=== PATIENT | female | born 1985 | race Caucasian/White ===

== ENCOUNTER 2017-10-10 21:45 | Inpatient (IN) | payer OTHER ==
[~2017-10-10] VITALS: Ht 154.9 cm; Wt 63.5 kg
[2017-10-10 21:50] VITALS: BP 117/81
--- NOTE | 2017-10-10 21:55 | NUR ---
TO LOBBY, VIA W/C, VSAMADA Shultz NOTED
--- NOTE | 2017-10-10 22:47 | NUR ---
PT TAKEN TO OF2
--- NOTE | 2017-10-10 23:11 | NUR ---
32Y F BIB SELF C/O RIGHT ARM CELLULITIS X 3 DAYS. PT STATES IT MAY BE FROM SHOOTING UP HEROIN OR A SPIDER BITE. PT SAYS SHE USED 4-5 DAYS AGO. PT DENIES ANY N/V/D, SOB, CP AT THE MOMENT. PT AAOX4. BREATHING IS UNLABORED AND CLEAR.
--- NOTE | 2017-10-11 00:51 | NUR ---
PT MOVED TO BED 2
--- NOTE | 2017-10-11 01:00 | NUR ---
REPORT RECEIVED FROM SEUN ORTIZ
[2017-10-11] MEDS ORDERED: NACL 0.9% 1,000 ML IV SCH (01:09)
[2017-10-11] MEDS ORDERED: MORPHINE SULFATE 10 MG/ML SYR IVP ONE (01:10)
[2017-10-11] MEDS ORDERED: KETOROLAC 30 MG/ML VIAL IVP ONE (01:10)
[2017-10-11] MEDS ORDERED: ONDANSETRON 4 MG/2 ML VIAL IM ONE (01:10)
[2017-10-11] MEDS ORDERED: VANCOMYCIN 1,000 MG in DEXTROSE 5% 250 ML IV ONE (01:10)
[2017-10-11] MEDS ORDERED: DIAZEPAM 5 MG TAB PO ONE (01:20)
[2017-10-11] MEDS ORDERED: VANCOMYCIN 1,000 MG VIAL ONE (01:27)
[2017-10-11 02:07] LABS: BASOPHILS # (AUTO) 0.3 K/uL (0.00-0.22); BASOPHILS % (AUTO) 1.8 % (0.0-2.0); EOSINOPHILS # (AUTO) 0.1 K/uL (0-0.4); EOSINOPHILS % (AUTO) 0.7 % (0.0-4.0); HEMATOCRIT 37.7 % (36-48); HEMOGLOBIN 11.8 g/dL (12.0-16.0); LYMPHOCYTES # (AUTO) 0.7 K/uL (2.5-16.5); LYMPHOCYTES % (AUTO) 4.6 % (20.5-51.1); MEAN CORPUSCULAR HEMOGLOBIN 27 pg (27-31); MEAN CORPUSCULAR HGB CONC 31 g/dL (33-37); MEAN CORPUSCULAR VOLUME 86 fL (80-94); MONOCYTES # (AUTO) 1.3 K/uL (0.8-1.0); MONOCYTES % (AUTO) 8.4 % (1.7-9.3); NEUTROPHILS # (AUTO) 13.6 K/uL (1.8-7.7); NEUTROPHILS % (AUTO) 84.5 % (42.2-75.2); PLATELET COUNT (AUTO) 408 K/uL (140-450); RED BLOOD CELL COUNT(AUTO) 4.36 MIL/uL (4.20-5.40); RED CELL DISTRIBUTION WIDTH 13.3 % (11.6-13.7)
[2017-10-11 02:17] LABS: ANION GAP 14.2 (8-16); CARBON DIOXIDE 25.4 mmol/L (21-32); CREATININE 0.7 mg/dL (0.6-1.3); POTASSIUM 3.6 mmol/L (3.5-5.1)
[2017-10-11 02:24] LABS: ALBUMIN 3.1 g/dL (3.4-5.0); TOTAL BILIRUBIN 0.5 mg/dL (0.0-1.0)
--- NOTE | 2017-10-11 02:40 | NUR ---
Patient appears to be resting comfortably in bed. Vital Signs within normal limits. Respirations even and unlabored.
--- NOTE | 2017-10-11 02:52 | NUR ---
PT SENT TO CT WITH TECH AAOX4 VIA BED
[2017-10-11] MEDS ORDERED: PIPERACILLIN/TAZOBACTAM 4.5 GM in DEXTROSE 5% 100 ML IV ONE (03:35)
[2017-10-11] MEDS ORDERED: NACL 0.9% 2,000 ML IV ONE (03:35)
[2017-10-11] MEDS ORDERED: PIPERACILLIN/TAZOBACTAM 2.25 GM VIAL IV ONE (04:04)
[2017-10-11] MEDS ORDERED: ONDANSETRON 4 MG/2 ML VIAL IVP PRN (04:50)
[2017-10-11] MEDS ORDERED: HYDROcodone/APAP 5/325 MG 1 TAB TAB PO PRN (04:50)
[2017-10-11] MEDS ORDERED: LORazepam 2 MG/ML VIAL IVP PRN (04:50)
[2017-10-11] MEDS ORDERED: ACETAMINOPHEN 325 MG TAB PO PRN (04:50)
[2017-10-11] MEDS ORDERED: VANCOMYCIN PER PHARMACY MC PRN (05:00)
[2017-10-11 07:50] VITALS: BP 100/67
[2017-10-11] MEDS: PIPER/TAZO 3.375GM/D5W PREMIX 50 ML IV SCH ×2 (12:00→17:56)
--- NOTE | 2017-10-11 12:00 | NUR ---
RECEIVED REPORT FROM SEUN REGALADO FOR CONTINUITY OF PATIENT CARE. PATIENT IN STABLE CONDITION. WILL CONTINUE TO MONITOR.
--- NOTE | 2017-10-11 12:31 | NUR ---
Clinical review faxed to [facility].
[2017-10-11] MEDS: VANCOMYCIN 1GM/DEXT 5% PREMIX 200 ML IV SCH (13:39)
--- NOTE | 2017-10-11 13:44 | NUR ---
PATIENT LYING IN BED SLEEPING, AROUSABLE BY VOICE. NO DISTRESS NOTED. PAIN WITHIN TOLERABLE AT THIS TIME. SCHEDULED MEDICATIONS DUE GIVEN. SAFETY MEASURES IN PLACE, CALL LIGHT WITHIN REACH. WILL CONTINUE TO MONITOR.
[2017-10-11 14:44] LABS: PROTHROMBIN TIME 10.1 secs (10.8-13.4)
[2017-10-11 16:00] VITALS: BP 105/59
--- NOTE | 2017-10-11 18:02 | NUR ---
PATIENT LYING IN BED WATCHING TV. NO DISTRESS NOTED. PAIN WITHIN TOLERABLE AT THIS TIME. MODERATE DRAINAGE NOTED ON RIGHT ABSCESS WOUND. CHANGED DRESSING WITH GAUZE. SCHEDULED ANTIBIOTICS DUE GIVEN. SAFETY MEASURES IN PLACE, CALL LIGHT WITHIN REACH. WILL CONTINUE TO MONITOR.
--- NOTE | 2017-10-11 19:20 | NUR ---
GAVE REPORT TO BOXING PROMOTER NURSE FOR CONTINUITY OF CARE. PATIENT IN STABLE CONDITION.
--- NOTE | 2017-10-11 19:21 | NUR ---
PATIENT REPORT RECEIVED FROM MORNING NURSE AT BEDSIDE. PATIENT IS ASLEEP. NO SIGNS AND SYMPTOMS OF DISTRESS NOTED. BREATHING EVEN AND UNLABORED. FAMILY MEMBER AT BEDSIDE. IV SITE NOTED ON LEFT ARM, IVF INFUSING WELL. BED IN LOWEST POSITION, SIDE RAILS UP AND CALL LIGHT WITHIN REACH WILL CONTINUE TO MONITOR.
[2017-10-11 20:00] VITALS: BP 114/71
--- NOTE | 2017-10-11 22:00 | NUR ---
CHECKED ON PATIENT. PATIENT IS ASLEEP. NO SIGNS AND SYMPTOMS OF DISTRESS NOTED. CALL LIGHT WITHIN REACH. WILL CONTINUE TO MONITOR.
[2017-10-12] VITALS: BP 110/60
[2017-10-12] MEDS ORDERED: HYDROcodone/APAP 5/325 MG 1 TAB TAB ONE (00:37)
[2017-10-12] MEDS: HYDROcodone/APAP 5/325 MG 1 TAB TAB PO PRN ×3 (00:40→22:02)
[2017-10-12] MEDS: PIPER/TAZO 3.375GM/D5W PREMIX 50 ML IV SCH ×4 (00:47→21:11)
[2017-10-12] MEDS: VANCOMYCIN 1GM/DEXT 5% PREMIX 200 ML IV SCH (01:00)
--- NOTE | 2017-10-12 01:00 | NUR ---
CONSENT WITNESSED. PATIENT IS RIGHT HANDED, AND UNABLE TO SIGN DUE TO PAIN/SWELLING. PATIENT'S SIGNED CONSENT FORMS.
--- NOTE | 2017-10-12 05:20 | NUR ---
OR CHECKLIST DONE
--- NOTE | 2017-10-12 07:20 | NUR ---
PATIENT REPORT GIVEN TO MORNING NURSE AT BEDSIDE. PATIENT IS IN STABLE CONDITION
--- NOTE | 2017-10-12 07:21 | NUR ---
RECEIVED REPORT FROM BUDGET ASSISTANT RN. PATIENT IS AAOX4, NO SIGNS AND SYMPTOMS OF ACUTE DISTRESS NOTED AT THIS TIME. HAS IV TO LEFT AC 18G INFUSING NS AT 50ML/HR. SITE IS CLEAN, DRY, PATENT AND INTACT. HAS AN ABSCESS TO HER RIGHT AC. DISCUSSED PLAN OF CARE. PATIENT AWARE THAT SHE WILL BE GOING TO SURGERY THIS MORNING FOR AN I&D. BED IN LOWEST POSITION, SIDE RAILS UP X2, CALL LIGHT PLACED WITHIN REACH. WILL CONTINUE TO MONITOR.
[2017-10-12 07:46] LABS: BASOPHILS # (AUTO) 0.1 K/uL (0.00-0.22); BASOPHILS % (AUTO) 0.7 % (0.0-2.0); EOSINOPHILS # (AUTO) 0.2 K/uL (0-0.4); HEMOGLOBIN 10.8 g/dL (12.0-16.0); LYMPHOCYTES # (AUTO) 1.3 K/uL (2.5-16.5); LYMPHOCYTES % (AUTO) 10.8 % (20.5-51.1); MEAN CORPUSCULAR HEMOGLOBIN 29 pg (27-31); MEAN CORPUSCULAR HGB CONC 34 g/dL (33-37); MEAN CORPUSCULAR VOLUME 87 fL (80-94); MONOCYTES # (AUTO) 0.9 K/uL (0.8-1.0); MONOCYTES % (AUTO) 7.8 % (1.7-9.3); NEUTROPHILS # (AUTO) 9.6 K/uL (1.8-7.7); NEUTROPHILS % (AUTO) 78.7 % (42.2-75.2); PLATELET COUNT (AUTO) 360 K/uL (140-450); RED BLOOD CELL COUNT(AUTO) 3.71 MIL/uL (4.20-5.40); RED CELL DISTRIBUTION WIDTH 13.4 % (11.6-13.7); WHITE BLOOD COUNT (AUTO) 12.1 K/uL (4.8-10.8)
[2017-10-12 08:00] VITALS: BP 113/67
--- NOTE | 2017-10-12 08:51 | NUR ---
PATIENT TAKEN FOR SURGICAL PROCEDURE. HELD LOVENOX DUE TO PROCEDURE.
[2017-10-12] MEDS ORDERED: BUPIVACAINE-MPF 0.25% 30 ML VIAL INJ ONE (08:59)
[2017-10-12] MEDS ORDERED: ENOXAPARIN 40 MG/0.4 ML SYR SUBQ SCH (09:00)
--- NOTE | 2017-10-12 09:07 | NUR ---
PATIENT HAS BEEN SCREENED AND CATEGORIZED LOW NUTRITION RISK. PATIENT WILL BE SEEN WITHIN 7 DAYS OF ADMISSION. 10/17/[address]
[2017-10-12] MEDS ORDERED: ONDANSETRON 4 MG/2 ML VIAL ONE (09:30)
[2017-10-12] MEDS ORDERED: PROPOFOL 200 MG/20 ML VIAL IV ONE (09:30)
[2017-10-12 09:43] LABS: ANION GAP 10.6 (8-16); CARBON DIOXIDE 28.2 mmol/L (21-32); CREATININE 0.6 mg/dL (0.6-1.3); POTASSIUM 3.8 mmol/L (3.5-5.1)
[2017-10-12] MEDS ORDERED: fentaNYL 0.05 MG/ML VIAL ONE (09:46)
[2017-10-12] MEDS ORDERED: MIDAZOLAM 2 MG/2 ML VIAL ONE (09:46)
[2017-10-12] MEDS ORDERED: MORPHINE SULFATE 4 MG/ML SYR ONE (09:46)
[2017-10-12 09:49] LABS: ALBUMIN 2.4 g/dL (3.4-5.0); MAGNESIUM 1.8 mg/dL (1.8-2.4); PHOSPHORUS 3.6 mg/dL (2.5-4.9); TOTAL BILIRUBIN 0.4 mg/dL (0.0-1.0)
[2017-10-12] MEDS ORDERED: MORPHINE SULFATE 4 MG/ML SYR IVP PRN ×2 (10:35)
[2017-10-12] MEDS ORDERED: MORPHINE SULFATE 2 MG/ML SYR IVP PRN (10:35)
[2017-10-12] MEDS ORDERED: METOCLOPRAMIDE 10 MG/2 ML INJ VIAL IVP PRN (10:35)
[2017-10-12] MEDS ORDERED: MIDAZOLAM 2 MG/2 ML VIAL IV ONE (10:35)
[2017-10-12 11:05] VITALS: BP 115/69
--- NOTE | 2017-10-12 11:05 | NUR ---
PATIENT IS BACK FROM SURGERY. DENIES ANY PAIN AT THIS TIME. VITAL SIGNS ARE STABLE. WILL CONTINUE TO MONITOR.
[2017-10-12] MEDS: VANCOMYCIN 1,250 MG in DEXTROSE 5% 250 ML IV SCH (15:13)
--- NOTE | 2017-10-12 15:34 | NUR ---
CM NOTE [facility] / FAX# [phone], ATTN: PAXTON #[phone]
--- NOTE | 2017-10-12 15:59 | NUR ---
CM NOTE CONCURRENT REVIEW FAXED TO [facility] (FAX# [phone], ATTN: SHIVANI #[phone]) AND [facility] (FAX# [phone], ATTN: SAMY #[phone])
[2017-10-12 16:00] VITALS: BP 112/67
--- NOTE | 2017-10-12 19:30 | NUR ---
ENDORSED PATIENT TO TOWER CRANE OPERATOR NURSE FOR CONTINUITY OF CARE. PATIENT IN STABLE CONDITION.
--- NOTE | 2017-10-12 19:31 | NUR ---
PATIENT IS CURRENTLY SLEEPING RESTING IN BED IVF INFUSING WELL IV SITE PATENT.RT ARM ELEVATED ON A PILLOW AND CONTINUE TO HAVE A CONSTANTINE WRAP AROUND HER RT ARM WILL CONTINUE TO MONITOR. PATIENT IS ABLE TO MAKE NEEDS KNOWN.CALL LIGHT WITHIN REACH WILL CONTINUE TO MONITOR.
--- NOTE | 2017-10-12 20:00 | NUR ---
Patient's Plan of Care was discussed and reviewed with WEIGHMASTER: JONATHON KING
--- NOTE | 2017-10-12 20:20 | NUR ---
RECEIVED REPORT FROM ANOTHER DIRECTOR OF CONTRACTS NURSE. PT RESTING IN BED, DAUGHTER IN LAW AT BEDSIDE. IV TO RIGHT AC #20G WITH NS AT 100 ML/HR, INFUSING WELL. NO VOMITING NOTED. NO C/O PAIN OR DISCOMFORT. CALL LIGHT WITHIN REACH. WILL CONTINUE TO MONITOR.
--- NOTE | 2017-10-12 22:02 | NUR ---
PATIENT IS COMPLAINING OF MODERATE PAIN TO HER RT ARM PATIENT WAS MEDICATED FOR PAIN ORDERED WILL CONTINUE TO MONITOR.CALL LIGHT WITHIN REACH.
[2017-10-13 00:19] VITALS: BP 92/44
--- NOTE | 2017-10-13 00:24 | NUR ---
PATIENT STABLE RESTING IN BED ASSISTED TO THE BATHROOM AND BACK TO BED DENIES PAIN AND DISCOMFORT.IVF INFUSING WELL IV SITE PATENT.WILL CONTINUE TO MONITOR.
[2017-10-13] MEDS: PIPER/TAZO 3.375GM/D5W PREMIX 50 ML IV SCH ×3 (00:45→11:11)
--- NOTE | 2017-10-13 02:52 | NUR ---
PATIENT AWAKE ON AND OFF NEEDS MET.WILL CONTINUE TO MONITOR.
[2017-10-13] MEDS: VANCOMYCIN 1,250 MG in DEXTROSE 5% 250 ML IV SCH (02:56)
--- NOTE | 2017-10-13 04:40 | NUR ---
PATIENT IS CURRENTLY SLEEPING IN BED IN NO DISTRESS WILL CONTINUE TO MONITOR.CALL LIGHT WITHIN REACH RT ARM CONTINUES TO BE ELEVATED.
--- NOTE | 2017-10-13 06:39 | NUR ---
PATIENT AWAKE AND LAB IS CURRENTLY DRAWING BLOOD PATIENT TOLERATES WELL.WILL CONTINUE TO MONITOR.
--- NOTE | 2017-10-13 07:28 | NUR ---
PATIENT STABLE REPORT ENDORSED AT BEDSIDE TO SEUN POZO SHE WILL RESUME CARE OF THE PATIENT.
--- NOTE | 2017-10-13 07:29 | NUR ---
RECEIVED REPORT FROM SUPERVISOR FINISHING DEPARTMENT NURSE AT BEDSIDE FOR CONTINUITY OF CARE. PT IN STABLE CONDITION.
[2017-10-13 07:38] LABS: BASOPHILS # (AUTO) 0.1 K/uL (0.00-0.22); BASOPHILS % (AUTO) 0.8 % (0.0-2.0); EOSINOPHILS # (AUTO) 0.3 K/uL (0-0.4); EOSINOPHILS % (AUTO) 3.3 % (0.0-4.0); HEMATOCRIT 31.4 % (36-48); HEMOGLOBIN 10.6 g/dL (12.0-16.0); LYMPHOCYTES % (AUTO) 11.7 % (20.5-51.1); MEAN CORPUSCULAR HEMOGLOBIN 29 pg (27-31); MEAN CORPUSCULAR HGB CONC 34 g/dL (33-37); MEAN CORPUSCULAR VOLUME 87 fL (80-94); MONOCYTES # (AUTO) 0.7 K/uL (0.8-1.0); NEUTROPHILS # (AUTO) 6.7 K/uL (1.8-7.7); NEUTROPHILS % (AUTO) 76.2 % (42.2-75.2); PLATELET COUNT (AUTO) 383 K/uL (140-450); RED BLOOD CELL COUNT(AUTO) 3.63 MIL/uL (4.20-5.40); RED CELL DISTRIBUTION WIDTH 13.3 % (11.6-13.7); WHITE BLOOD COUNT (AUTO) 8.8 K/uL (4.8-10.8)
[2017-10-13 07:50] LABS: ANION GAP 9.7 (8-16); CARBON DIOXIDE 32.1 mmol/L (21-32); CREATININE 0.7 mg/dL (0.6-1.3); POTASSIUM 3.8 mmol/L (3.5-5.1)
[2017-10-13 08:00] VITALS: BP 105/59
[2017-10-13] MEDS ORDERED: AMOX-999 PO (08:52)
[2017-10-13] MEDS ORDERED: SULF-58 PO (08:53)
[2017-10-13] MEDS ORDERED: ACET-2863 PO (08:53)
--- NOTE | 2017-10-13 09:11 | NUR ---
CM NOTE CONCURRENT REVIEW FAXED TO [facility] [phone] SHIVANI [phone]. SPOKE WITH SMITA OF [place] # [phone] TO FOLLOW UP ON THE AUTHORIZATION FOR HOME HEALTH AND SHE SAID THEY HAVE NOT RECEIVED THE FAXED ORDER. FAXED ORDER TO [place] [phone] AND TO [facility] [phone] ATTN: ANTONIO # [phone].
--- NOTE | 2017-10-13 10:10 | NUR ---
TRACEY NOTE PER ANTON[facility] PH# [phone] THEY CAN SEND A NURSE TO SEE THE PATIENT WHEN PATIENT IS DISCHARGED. THEY ARE AWARE THAT THERE IS A DISCHARGE ORDER FOR THE PATIENT TODAY. CHARGE NURSE [place] AWARE. Addendum: 10/13/17 at 1012 by Juli Srinivasan CM [facility] PH# [phone] AWARE
--- NOTE | 2017-10-13 13:11 | NUR ---
PT D/C TO GO HOME WITH HOME HEALTH. GAVE D/C FORMS, INSTRUCTIONS, FOLLOW UP APPOINTMENT, AND RX. PT VERBALIZED UNDERSTANDING AND SIGNED FORMS. D/C IV TO LEFT AC 18G. IV CATHETER TIP INTACT. APPLIED DRESSING AND PRESSURE TO SITE. NO BLEEDING NOTED. REMOVED ID BAND. PT CHANGED IN OWN CLOTHES. IN STABLE CONDITION.
--- NOTE | 2017-10-13 14:54 | NUR ---
CM NOTE PER TRACEY [facility] OF [place] PH# [phone], FOR [facility] AUTHORIZATION# [id number], ANTONIO OF [facility] PH# [phone] AWARE.
== END 2017-10-13 14:00 | disposition home health service (06) | DRG 720 ==
LOC: MED 21:45 → MTU 10-11 04:54
PROVIDERS: ADMIT Hospitalist; ATTEND Hospitalist
PROC: 0JBG0ZZ Excision of Right Lower Arm Subcutaneous Tissue and Fascia, Open Approach (ICD-10-PCS; principal; 2017-10-12 09:00)
DX: A41.9 Sepsis, unspecified organism (principal); E44.0 Moderate protein-calorie malnutrition; L02.413 Cutaneous abscess of right upper limb; F15.90 Other stimulant use, unspecified, uncomplicated; F17.210 Nicotine dependence, cigarettes, uncomplicated; F11.10 Opioid abuse, uncomplicated; F19.10 Other psychoactive substance abuse, uncomplicated; L03.113 Cellulitis of right upper limb; Z98.891 History of uterine scar from previous surgery; Z80.3 Family history of malignant neoplasm of breast; Z83.3 Family history of diabetes mellitus; Z68.26 Body mass index [BMI] 26.0-26.9, adult
CPT/HCPCS: 36415; 71045; 73201; 80048; 80053; 80202; 81025; 83605; 83735; 84100; 85025; 85610; 85730; 87040; 87070; 87075; 87081; 87186; 87205; 93005; 96374; 96375; 99285; J1885; J2250; J2270; J2405; J2543; J2704; J3010; J3370; J3490; J7030; J7060; Q0092; Q9967

== ENCOUNTER 2019-11-19 21:30 | Emergency (ER) | payer OTHER ==
[~2019-11-19] VITALS: Ht 154.9 cm; Wt 63.5 kg
[~2019-11-19 21:30] MED LIST: AMOX-999 PO; HYDR-5123 PO; SULF-58 PO
[2019-11-19 22:07] VITALS: BP 147/97
[2019-11-20 00:13] VITALS: BP 147/97
--- NOTE | 2019-11-20 00:13 | NUR ---
PT CALLED FROM LOBBY, NO ANSWER, LWBS
--- NOTE | 2019-11-20 00:13 | NUR ---
PATIENT LEFT WITHOUT BEING SEEN BY DR. LORENZO. NO FURTHER CARE PROVIDED FOR PATIENT.
== END 2019-11-20 00:13 | disposition left against medical advice (07) ==
LOC: MED 21:30
DX: L02.413 Cutaneous abscess of right upper limb (principal); Z53.21 Procedure and treatment not carried out due to patient leaving prior to being seen by health care provider

== ENCOUNTER 2019-11-20 12:11 | Emergency (ER) | payer OTHER ==
[~2019-11-20] VITALS: Ht 154.9 cm; Wt 63.5 kg
[2019-11-20 12:25] VITALS: BP 137/87
--- NOTE | 2019-11-20 12:29 | NUR ---
Vital Signs Stable. [facility].
--- NOTE | 2019-11-20 13:34 | NUR ---
CALLED FOR PT, NO ANSWER IN ER LOBBY OR OUTSIDE OF ER, PT LWBS AT THIS TIME.
--- NOTE | 2019-11-20 13:51 | NUR ---
CALLED FOR PATIENT SECOND TIME. NO ANSWER
--- NOTE | 2019-11-20 14:05 | NUR ---
CALLED PATIENT 3RD TIME. NO RESPONSE.
--- NOTE | 2019-11-20 14:06 | NUR ---
PATIENT LEFT WITHOUT BEING SEEN BY DR. rascon. NO FURTHER CARE PROVIDED FOR PATIENT.
== END 2019-11-20 13:34 | disposition left against medical advice (07) ==
LOC: MED 12:11
DX: L02.413 Cutaneous abscess of right upper limb (principal); Z53.21 Procedure and treatment not carried out due to patient leaving prior to being seen by health care provider

== ENCOUNTER 2021-07-01 00:22 | Emergency (ER) | payer OTHER ==
[~2021-07-01] VITALS: Ht 154.9 cm; Wt 103.0 kg
[~2021-07-01 00:22] MED LIST changes: +HYDR-5080 PO; -HYDR-5123 PO
[2021-07-01 00:32] VITALS: BP 138/75
--- NOTE | 2021-07-01 00:39 | NUR ---
Pt ambulated to bed 07.
--- NOTE | 2021-07-01 00:45 | NUR ---
ERMD at bedside for examination
[2021-07-01] MEDS ORDERED: PEG4000P3 PO (01:06)
--- NOTE | 2021-07-01 01:34 | NUR ---
Seen by ERMD no nursing interventions needed for patient.
--- NOTE | 2021-07-01 01:42 | NUR ---
Patient discharged with v/s stable. Written and verbal after care instructions given and explained. Patient alert, oriented and verbalized understanding of instructions. Ambulatory with steady gait. All questions addressed prior to discharge. ID band removed. Patient advised to follow up with PMD. Rx of Golytely Solution given. Patient educated on indication of medication including possible reaction and side effects. Opportunity to ask questions provided and answered.
[2021-07-01 01:44] VITALS: BP 138/75
== END 2021-07-01 01:42 | disposition home or self-care (01) ==
LOC: MED 00:22
DX: K59.03 Drug induced constipation (principal); T40.605A Adverse effect of unspecified narcotics, initial encounter; Z79.899 Other long term (current) drug therapy; Y92.89 Other specified places as the place of occurrence of the external cause
CPT/HCPCS: 74018; 99283

== ENCOUNTER 2021-11-05 02:50 | Emergency (ER) | payer OTHER ==
[~2021-11-05] VITALS: Ht 154.9 cm; Wt 90.7 kg
[2021-11-05 02:50] VITALS: BP 138/77
[~2021-11-05 02:50] MED LIST changes: +PEG4000P3 PO
--- NOTE | 2021-11-05 02:50 | NUR ---
TO BED AMBULATORY
[2021-11-05] MEDS ORDERED: KETOROLAC 60 MG/2 ML VIAL IM ONE (03:15)
[2021-11-05 03:29] LABS: APPEARANCE,URINE CLEAR (CLEAR); BILIRUBIN,URINE NEGATIVE (NEGATIVE); BLOOD, URINE NEGATIVE (NEGATIVE); COLOR,URINE YELLOW (YELLOW); LEUKOCYTE ESTERASE ,URINE NEGATIVE (NEGATIVE); NITRITE, URINE NEGATIVE (NEGATIVE); UGLUCOSE NEGATIVE (NEGATIVE)
[2021-11-05 03:46] LABS: ALBUMIN 3.3 g/dL (3.4-5.0); ANION GAP 9.5 (8-16); CARBON DIOXIDE 32.8 mmol/L (21-32); CREATININE 0.7 mg/dL (0.6-1.3); POTASSIUM 4.3 mmol/L (3.5-5.1); TOTAL BILIRUBIN 0.1 mg/dL (0.0-1.0)
--- NOTE | 2021-11-05 04:00 | NUR ---
36 YO F BIB SELF FOR LOWER BACK PAIN. PAINIS ON LEFT LOWER SIDE. NOTHING HAPPENED PRIOR TO CAUSE BACK PAIN BUT PT STATES STANDING HURTS. PT STATES PAIN FOR X2 MONTHS. PT STATES SHE ALSO BEEN FEELING WEAK BUT IS WORRIED SHE MAY HAVE EARLY SIGNS OF DM2 B/C HER SUGAR IS ALWAYS HIGH. PT DENIES N/F/V/SOB/ COUGH. PT IS A&OX4, AMBULATORY, NO PMH OR ALLERGIES.
[2021-11-05 04:39] LABS: BARBITURATE, URINE NEGATIVE ng/ml (NEG <=200); BENZODIAZEPINE, URINE NEGATIVE ng/mL (NEG <=200); CANNABINOID, URINE NEGATIVE ng/mL (NEG <=50); COCAINE, URINE NEGATIVE ng/mL (NEG <=300); OPIATE, URINE NEGATIVE ng/mL (NEG <=2000); PHENCYCLIDINE SCREEN,URINE NEGATIVE ng/mL (NEG <=25)
[2021-11-05 04:49] LABS: BASOPHILS % (AUTO) 0.3 % (0.0-2.0); EOSINOPHILS # (AUTO) 0.1 K/uL (0-0.4); EOSINOPHILS % (AUTO) 1.8 % (0.0-4.0); HEMATOCRIT 36.9 % (36-48); HEMOGLOBIN 12.2 g/dL (12.0-16.0); LYMPHOCYTES # (AUTO) 2.9 K/uL (2.5-16.5); LYMPHOCYTES % (AUTO) 35.6 % (20.5-51.1); MEAN CORPUSCULAR HEMOGLOBIN 29 pg (27-31); MEAN CORPUSCULAR HGB CONC 33 g/dL (33-37); MEAN CORPUSCULAR VOLUME 85.9 fL (80-94); MONOCYTES # (AUTO) 0.6 K/uL (0.8-1.0); MONOCYTES % (AUTO) 7.4 % (1.7-9.3); NEUTROPHILS # (AUTO) 4.5 K/uL (1.8-7.7); NEUTROPHILS % (AUTO) 54.9 % (42.2-75.2); PLATELET COUNT (AUTO) 358 K/uL (140-450); RED BLOOD CELL COUNT(AUTO) 4.29 MIL/uL (4.20-5.40); RED CELL DISTRIBUTION WIDTH 13.9 % (11.6-13.7); WHITE BLOOD COUNT (AUTO) 8.2 K/uL (4.8-10.8)
[2021-11-05] MEDS ORDERED: NAPR-54 PO (05:24)
[2021-11-05 05:28] VITALS: BP 129/68
--- NOTE | 2021-11-05 05:28 | NUR ---
Patient discharged with v/s stable. Written and verbal after care instructions given and explained. Patient alert, oriented and verbalized understanding of instructions. Ambulatory with steady gait. All questions addressed prior to discharge. ID band removed. Patient advised to follow up with PMD. Rx of NAPROXEN given. Opportunity to ask questions provided and answered.
--- NOTE | 2021-11-05 05:34 | NUR ---
The patient's care was reviewed and supervised by Julia Hannah RN.
== END 2021-11-05 05:28 | disposition home or self-care (01) ==
LOC: MED 02:50
DX: M54.31 Sciatica, right side (principal); F15.10 Other stimulant abuse, uncomplicated; Z79.899 Other long term (current) drug therapy
CPT/HCPCS: 36415; 80053; 80305; 81003; 85025; 96372; 99283; J1885

== ENCOUNTER 2023-02-03 01:40 | Emergency (ER) | payer OTHER ==
[~2023-02-03] VITALS: Ht 154.9 cm; Wt 95.3 kg
[~2023-02-03 01:40] MED LIST changes: +CIPR500T4 PO; +IBUP-2213 PO; +NAPR-54 PO
[2023-02-03 02:00] VITALS: BP 149/95
--- NOTE | 2023-02-03 02:03 | NUR ---
to bed ambulatory
--- NOTE | 2023-02-03 02:41 | NUR ---
Patient being evaluated by physician at bedside.
--- NOTE | 2023-02-03 02:43 | NUR ---
Dr. Ibanez examining patient.
[2023-02-03] MEDS ORDERED: AMOXIL/CLAVULANATE 875/125 MG 1 TAB PO ONE (02:45)
--- NOTE | 2023-02-03 03:00 | NUR ---
PT TAKEN TO RADIOLOGY
--- NOTE | 2023-02-03 03:50 | NUR ---
Dr. Ibanez examining patient.
[2023-02-03] MEDS ORDERED: AMOX1TAB8 PO (03:57)
[2023-02-03] MEDS ORDERED: IBUP-2218 PO (03:57)
--- NOTE | 2023-02-03 04:07 | NUR ---
Patient discharged with v/s stable. Written and verbal after care instructions given and explained. Patient alert, oriented and verbalized understanding of instructions. Ambulatory with steady gait. All questions addressed prior to discharge. ID band removed. Patient advised to follow up with PMD. Rx of amoxicillin and ibuprofen given.Opportunity to ask questions provided and answered.
--- NOTE | 2023-02-03 04:08 | NUR ---
Note debbie in ED - 02/03/23 at 0409 by NOLAN Patient discharged with v/s stable. Written and verbal after care instructions given and explained. Patient verbalized understanding. Ambulatory with steady gait. All questions addressed prior to discharge. Advised to follow up with PMD.
== END 2023-02-03 04:07 | disposition home or self-care (01) ==
LOC: MED 01:40
DX: M27.2 Inflammatory conditions of jaws (principal); H92.01 Otalgia, right ear; R51.9 Headache, unspecified; F15.90 Other stimulant use, unspecified, uncomplicated; F11.90 Opioid use, unspecified, uncomplicated; Z98.890 Other specified postprocedural states; Z79.899 Other long term (current) drug therapy; Z79.2 Long term (current) use of antibiotics; Z79.1 Long term (current) use of non-steroidal anti-inflammatories (NSAID)
CPT/HCPCS: 70360; 99283

== ENCOUNTER 2023-05-12 01:30 | Emergency (ER) | payer OTHER ==
[~2023-05-12] VITALS: Ht 154.9 cm; Wt 100.2 kg
[~2023-05-12 01:30] MED LIST changes: +AMOX1TAB8 PO; +IBUP-2218 PO
[2023-05-12 01:36] VITALS: BP 124/80; PULSE 90; RESP 16; TEMP 97.7; O2SAT 100
[2023-05-12] MEDS ORDERED: ALUMINUM HYD/MAG/SIMETHICONE 30 ML UDC ONE (01:44)
[2023-05-12] MEDS ORDERED: FAMOTIDINE 20 MG TAB ONE (01:45)
[2023-05-12] MEDS ORDERED: ONDANSETRON 4 MG ODT ONE (01:45)
[2023-05-12] MEDS ORDERED: POLY17PD72 PO (03:13)
== END 2023-05-12 03:30 | disposition home or self-care (01) ==
LOC: MED 01:30
DX: K59.00 Constipation, unspecified (principal); Z79.899 Other long term (current) drug therapy; Z98.890 Other specified postprocedural states
CPT/HCPCS: 99281; Q0162

== ENCOUNTER 2023-05-14 03:23 | Emergency (ER) | payer OTHER ==
[~2023-05-14] VITALS: Ht 152.4 cm; Wt 86.2 kg
[~2023-05-14 03:23] MED LIST changes: +POLY17PD72 PO
== END 2023-05-14 03:38 | disposition left against medical advice (07) ==
LOC: MED 03:23
DX: K59.00 Constipation, unspecified (principal); Z53.21 Procedure and treatment not carried out due to patient leaving prior to being seen by health care provider
CPT/HCPCS: 99281

== ENCOUNTER 2023-05-15 17:15 | Emergency (ER) | payer OTHER | END 2023-05-15 17:55 | disposition left against medical advice (07) | LOC: MED 17:15 | DX: Z53.21 Procedure and treatment not carried out due to patient leaving prior to being seen by health care provider (principal) ==

== ENCOUNTER 2023-05-28 10:10 | Emergency (ER) | payer OTHER ==
[~2023-05-28] VITALS: Ht 154.9 cm; Wt 95.3 kg
[2023-05-28 10:19] VITALS: BP 140/86; PULSE 89; RESP 18; TEMP 97.2; O2SAT 98
[2023-05-28] MEDS ORDERED: KETOROLAC 60 MG/2 ML VIAL IM ONE (10:30)
[2023-05-28] MEDS ORDERED: AMOX1TAB8 PO (11:01)
[2023-05-28] MEDS ORDERED: IBUP-2213 PO (11:01)
== END 2023-05-28 11:05 | disposition home or self-care (01) ==
LOC: MED 10:10
DX: K04.7 Periapical abscess without sinus (principal); Z98.890 Other specified postprocedural states; Z79.899 Other long term (current) drug therapy; Z79.1 Long term (current) use of non-steroidal anti-inflammatories (NSAID); Z79.2 Long term (current) use of antibiotics
CPT/HCPCS: 96372; 99283; J1885

== ENCOUNTER 2023-07-12 22:50 | Emergency (ER) | payer OTHER ==
[~2023-07-12] VITALS: Ht 154.9 cm; Wt 90.7 kg
[2023-07-12 23:13] VITALS: BP 140/83; PULSE 95; RESP 20; TEMP 98; O2SAT 98
[2023-07-12] MEDS ORDERED: BOWEL EVACUANT DRINK 4,000 ML PDS PO ONE (23:40)
[2023-07-13] MEDS ORDERED: LACT-58 PO (01:13)
[2023-07-13] MEDS ORDERED: DOCU-299 PO (01:13)
[2023-07-13] MEDS ORDERED: DOCU283N RC (01:13)
[2023-07-13 01:53] VITALS: BP 103/64; PULSE 87; RESP 20; TEMP 98; O2SAT 98
== END 2023-07-13 02:00 | disposition home or self-care (01) ==
LOC: MED 22:50
DX: K59.00 Constipation, unspecified (principal); F11.10 Opioid abuse, uncomplicated; Z98.890 Other specified postprocedural states; Z79.899 Other long term (current) drug therapy; Z79.1 Long term (current) use of non-steroidal anti-inflammatories (NSAID); Z79.2 Long term (current) use of antibiotics
CPT/HCPCS: 99284

== ENCOUNTER 2024-03-31 18:03 | Emergency (ER) | payer OTHER ==
[~2024-03-31] VITALS: Ht 154.9 cm; Wt 86.2 kg
[~2024-03-31 18:03] MED LIST changes: +DOCU-299 PO; +DOCU283N RC; +LACT-58 PO; +NAPR-337 PO; -NAPR-54 PO
[2024-03-31 18:10] VITALS: BP 133/85; PULSE 101; RESP 18; TEMP 98.3; O2SAT 100
[2024-03-31] MEDS ORDERED: IBUP-1842 PO (18:24)
[2024-03-31] MEDS ORDERED: CEPH-588 PO (18:24)
[2024-03-31 18:50] VITALS: BP 133/85; PULSE 101; RESP 18; TEMP 98.3; O2SAT 100
== END 2024-03-31 18:50 | disposition home or self-care (01) ==
LOC: MED 18:03
DX: S91.301A Unspecified open wound, right foot, initial encounter (principal); F11.90 Opioid use, unspecified, uncomplicated; Z79.899 Other long term (current) drug therapy; X58.XXXA Exposure to other specified factors, initial encounter; Y92.89 Other specified places as the place of occurrence of the external cause; Y93.89 Activity, other specified; Y99.8 Other external cause status
CPT/HCPCS: 82948; 90471; 90715; 99283; 99284

== ENCOUNTER 2024-05-30 13:03 | Emergency (ER) | payer OTHER ==
[~2024-05-30 13:03] MED LIST changes: +CEPH-588 PO; +IBUP-1842 PO
[2024-05-30] MEDS ORDERED: MUPI1OIN TP (21:32)
[2024-05-30] MEDS ORDERED: CLIN300C2 PO (21:32)
== END 2024-05-30 13:36 | disposition left against medical advice (07) ==
LOC: MED 13:03
DX: T14.8XXA Other injury of unspecified body region, initial encounter (principal); Z53.21 Procedure and treatment not carried out due to patient leaving prior to being seen by health care provider; W57.XXXA Bitten or stung by nonvenomous insect and other nonvenomous arthropods, initial encounter; Y92.89 Other specified places as the place of occurrence of the external cause; Y93.89 Activity, other specified; Y99.8 Other external cause status

== ENCOUNTER 2024-05-30 19:44 | Emergency (ER) | payer OTHER ==
[~2024-05-30] VITALS: Ht 154.9 cm; Wt 81.6 kg
[2024-05-30 20:07] VITALS: BP 138/91; PULSE 100; RESP 16; TEMP 98.7; O2SAT 100
--- NOTE | 2024-05-30 20:15 | NUR ---
TO BED 11 FOLLOWING TRIAGE
[2024-05-30 20:18] VITALS: O2SAT 100
--- NOTE | 2024-05-30 20:18 | NUR ---
SEEN AND EXAMINED BY
--- NOTE | 2024-05-30 20:37 | NUR ---
XRAY AT BEDSIDE
--- NOTE | 2024-05-30 20:40 | NUR ---
MEDICATED PER PA'S ORDER, TOLERATED WELL.
[2024-05-30] MEDS: CLINDAMYCIN 600 MG/4 ML VIAL IM ONE (20:41)
--- NOTE | 2024-05-30 20:46 | NUR ---
Al lewis in [facility] - 05/30/24 at 2050 by BRENDA RT AT BEDSIDE
[2024-05-30 20:51] LABS: BASOPHILS # (AUTO) 0.1 K/uL (0.00-0.22); BASOPHILS % (AUTO) 0.5 % (0.0-2.0); EOSINOPHILS # (AUTO) 0.3 K/uL (0-0.4); HEMATOCRIT 37.5 % (36-48); HEMOGLOBIN 12.3 g/dL (12.0-16.0); LYMPHOCYTES % (AUTO) 29.6 % (20.5-51.1); MEAN CORPUSCULAR HEMOGLOBIN 28 pg (27-31); MEAN CORPUSCULAR HGB CONC 33 g/dL (33-37); MEAN CORPUSCULAR VOLUME 84.9 fL (80-94); MONOCYTES # (AUTO) 1.1 K/uL (0.8-1.0); MONOCYTES % (AUTO) 10.9 % (1.7-9.3); NEUTROPHILS # (AUTO) 5.7 K/uL (1.8-7.7); PLATELET COUNT (AUTO) 334 K/uL (140-450); RED BLOOD CELL COUNT(AUTO) 4.41 MIL/uL (4.20-5.40); RED CELL DISTRIBUTION WIDTH 15.6 % (11.6-13.7); WHITE BLOOD COUNT (AUTO) 10.2 K/uL (4.8-10.8)
[2024-05-30 21:26] LABS: ALBUMIN 3.5 g/dL (3.4-5.0); ANION GAP 10.5 (8-16); CALCIUM 10.2 mg/dL (8.5-10.1); CARBON DIOXIDE 32.5 mmol/L (21-32); CREATININE 0.8 mg/dL (0.6-1.3); TOTAL BILIRUBIN 0.2 mg/dL (0.0-1.0); TOTAL PROTEIN, SERUM 8.2 g/dL (6.4-8.2)
[2024-05-30] MEDS ORDERED: MUPI1OIN TP (21:32)
[2024-05-30] MEDS ORDERED: CLIN300C2 PO (21:32)
--- NOTE | 2024-05-30 21:40 | NUR ---
Written and verbal after care instructions given and explained. Patient alert, oriented and verbalized understanding of instructions. Ambulatory with steady gait. All questions addressed prior to discharge. ID band removed. Patient advised to follow up with PMD. Rx given. Patient educated on indication of medication including possible reaction and side effects. Opportunity to ask questions provided and answered.
== END 2024-05-30 21:40 | disposition home or self-care (01) ==
LOC: MED 19:44
DX: L03.115 Cellulitis of right lower limb (principal); R03.0 Elevated blood-pressure reading, without diagnosis of hypertension; Z79.1 Long term (current) use of non-steroidal anti-inflammatories (NSAID); Z79.2 Long term (current) use of antibiotics; Z79.899 Other long term (current) drug therapy
CPT/HCPCS: 36415; 73630; 80053; 85025; 85651; 86140; 96372; 99284; J3490